=== PATIENT | male | born 1995 | race Caucasian/White ===

== ENCOUNTER 2016-08-21 08:48 | Emergency (ER) | payer SELFPAY ==
--- NOTE | 2016-08-21 09:17 | ED Physician Chart ---
Chief Complaint/HPI - Patient Information Date Seen:: 08/21/16 Time Seen:: 09:11 Chief Complaint:: sore throat History of Present Illness:: pt w st x 1week. ?fevers hurts to swallow and felt sob in bed last nt. has cough prod yellow sputum. no ALEXANDER, no rash. no stiff neck. he says back is sore from coughing. he is able to swallow ok. no prior dr visit for this. no andrew pmh. no meds. has used tylenol /motrin without relief of pains Allergies:: Allergies Allergy/AdvReac Type Severity Reaction Status Date / Time No Known Allergies Allergy Verified 08/21/16 08:53 Vitals:: Vital Signs - 8 hr 08/21/16 08:48 Temp 98.9 F HR 102 RR 16 BP 143/91 O2 Sat % 98 Historian:: Patient Review of Systems - Review of Systems General/Constitutional: Fever (?), No fever, No chills, No weight loss, No weakness, No diaphoresis, No edema, No loss of appetite Skin: No skin lesions, No rash, No bruising Head: No headache, No light-headedness Eyes: No loss of vision, No pain, No diplopia ENT: No earache, No nasal drainage, Sore throat, No tinnitus Neck: No neck pain, No swelling, No thyromegaly, No stiffness, No mass noted Cardio Vascular: No chest pain, No palpitations, No PND, No orthopnea, No edema Pulmonary: No SOB, Cough, Sputum, No wheezing GI: No nausea, No vomiting, No diarrhea, No pain, No melena, No hematochezia, No constipation, No hematemesis G/U: No dysuria, No frequency, No hematuria Musculoskeletal: No bone or joint pain, No back pain, No muscle pain Endocrine: No polyuria, No polydipsia Psychiatric: No prior psych history, No depression, No anxiety, No suicidal ideation Hematopoietic: No bruising, No lymphadenopathy Allergic/Immuno: No urticaria, No angioedema Neurological: No syncope, No focal symptoms, No weakness, No paresthesia, No headache, No seizure, No dizziness, No confusion, No vertigo Past Medical History - Past Medical History Past Medical History: No significant medical hx Social History: Non Smoker, Lives With Parents Medication: Reviewed Family Medical History - Family Member Mother Other Medical History: denies family medical history Physical Exam - Physical Examination General/Constitutional: Awake, Well-developed, well-nourished, Alert, No distress, GCS 15, Non-toxic appearing, Ambulatory Head: Atraumatic Eyes: Lids, conjuctiva normal, PERRL, EOMI Skin: Nl inspection, No rash, No skin lesions, No ecchymosis, Well hydrated, No lymphadenopathy ENMT: External ears, nose nl, Nasal exam nl, Lips, teeth, gums nl Other ENMT comments:: b tonsils enlarged and slt pus but no abscess. not occluding. no stridor. airway very well patent. not drooling. nrml speech. mild cx nodes. tms cl b. clear nasal Neck: Nontender, Full ROM w/o pain, No JVD, No nuchal rigidity, No bruit, No mass, No stridor Respiratory: Nl effort/Exclusion, Clear to Auscultation, No Wheeze/Rhonchi/Rales Other Respiratory comments:: no cough heard. no wheeze. good air mvt ..no stridor. Cardio Vascular: RRR, No murmur, gallop, rubs, NL S1 S2 GI: No tenderness/rebounding/guarding, No organomegaly, No hernia, Normal BS's, Nondistended, No mass/bruits, No McBurney tenderness : No CVA tenderness Extremities: No tenderness or effusion, Full ROM, normal strength in all extremities, No edema, Normal digits & nails Other Extremities comments:: mild tndr low back seems ms. no cva tndr. ok rom. abd is soft/nt/pos nabs. no rebound. Neuro/Psych: Alert/oriented, DTR's symmetric, Normal sensory exam, Normal motor strength, Judgement/insight normal, Mood normal, Normal gait, No focal deficits Misc: No paraspinal tenderness ED Septic Shock - . Is Septic Shock (SBP<90, OR Lactate>4 mmol\L) present?: No - <6hrs of presentation: Vital Signs: Vital Signs - 8 hr 08/21/16 08:48 Temp 98.9 F HR 102 RR 16 BP 143/91 O2 Sat % 98 Reassessment (Disposition) - Reassessment Reassessment Condition:: Improved - Diagnosis Diagnosis:: 1 pharyngitis/bronchitis - Aftercare/Follow up Instructions Aftercare/Follow-Up Instructions:: Counseled pt & family regarding lab results/ diagnosis & need follow up Medication Prescribed:: rx norco 5s no 15, medrol pack, biaxin 500 bid see pmd in 1-2 days for rechk. - Patient Disposition Discharge/Transfer:: Home Condition at Disposition:: Improved
== END 2016-08-21 09:36 | disposition home or self-care (01) ==
LOC: ER 08:48
DX: J02.9 Acute pharyngitis, unspecified (principal); R05 Cough
CPT/HCPCS: Z7502